=== PATIENT | male | born 1945 | race Two or more races ===

== ENCOUNTER 2020-02-14 07:33 | Day surgery (SDC) | payer OTHER | END 2020-02-14 13:25 | disposition home or self-care (01) | LOC: AMB-ENDOS 07:33 → ADM 13:45 | PROVIDERS: ATTEND Colon & Rectal Surgery | DX: D12.3 Benign neoplasm of transverse colon (principal); D12.4 Benign neoplasm of descending colon; K64.1 Second degree hemorrhoids ==

== ENCOUNTER 2021-07-30 06:20 | Day surgery (SDC) | payer OTHER | END 2021-07-30 13:30 | disposition home or self-care (01) | LOC: AMB-ENDOS 06:20 | PROVIDERS: ATTEND Colon & Rectal Surgery | DX: D12.8 Benign neoplasm of rectum (principal); K64.3 Fourth degree hemorrhoids; Z20.822 Contact with and (suspected) exposure to COVID-19 ==

== ENCOUNTER 2021-08-18 06:02 | Day surgery (SDC) | payer OTHER | END 2021-08-18 17:00 | disposition home or self-care (01) | LOC: CIR.AMB 06:02 | PROVIDERS: ATTEND Colon & Rectal Surgery | DX: D12.5 Benign neoplasm of sigmoid colon (principal); Z20.822 Contact with and (suspected) exposure to COVID-19 ==